=== PATIENT | female | born 1995 | race African-American/Black ===

== ENCOUNTER 2017-11-05 15:29 | Emergency (ER) | payer OTHER ==
[~2017-11-05] VITALS: Ht 165.1 cm; Wt 94.8 kg
[~2017-11-05 15:29] MED LIST: ADVAIR DISK2 IN; ALBUTEROL2.5 MG/3 M IN; CEPH500C57 OR; CEPHALEXIN500 M1 PO; IBUPROFEN600 MG PO; LORTAB5 PO; MEDDOSEPAK OR; MEDDOSEPAK PO; MIRALAX3350 N1 PO; NAPROSYN500 MG PO; NEBULIZE3; PROAIR HFA IN; SINGULAIR10 MG PO; ZITHROMAX500 MG OR; ZOFRAN ODT8 MG SL
[2017-11-05] MEDS ORDERED: AUGMENTIN875TAB PO (15:50)
[2017-11-05 15:57] VITALS: BP 137/71
== END 2017-11-05 15:55 | disposition home or self-care (01) | DRG 159 ==
LOC: ED 15:29
DX: K03.81 Cracked tooth (principal); J45.909 Unspecified asthma, uncomplicated; F17.290 Nicotine dependence, other tobacco product, uncomplicated